=== PATIENT | male | born 1990 | race Caucasian/White ===

== ENCOUNTER 2016-10-07 10:03 | Emergency (ER) | payer BC ==
[~2016-10-07] VITALS: Ht 182.9 cm; Wt 102.1 kg
== END 2016-10-07 11:15 | disposition short-term general hospital (02) ==
LOC: ER 10:03
DX: S93.402A Sprain of unspecified ligament of left ankle, initial encounter (principal); X50.1XXA Overexertion from prolonged static or awkward postures, initial encounter; Y93.72 Activity, wrestling; Y99.8 Other external cause status